=== PATIENT | female | born 2000 | race Two or more races ===

== ENCOUNTER 2024-05-06 10:17 | Outpatient (CLI) | payer OTHER | END 2024-05-06 10:23 | disposition home or self-care (01) | LOC: PRENATAL 10:17 | PROVIDERS: ATTEND Obstetrics & Gynecology Maternal & Fetal Medicine | DX: O36.80X0 Pregnancy with inconclusive fetal viability, not applicable or unspecified (principal); Z36.82 Encounter for antenatal screening for nuchal translucency; Z14.8 Genetic carrier of other disease; O14.90 Unspecified pre-eclampsia, unspecified trimester; Z3A.14 14 weeks gestation of pregnancy ==

== ENCOUNTER 2024-07-19 12:15 | Outpatient (CLI) | payer OTHER | END 2024-07-19 12:16 | disposition home or self-care (01) | LOC: PRENATAL 12:15 | PROVIDERS: ATTEND Obstetrics & Gynecology Maternal & Fetal Medicine | DX: O35.9XX0 Maternal care for (suspected) fetal abnormality and damage, unspecified, not applicable or unspecified (principal); O35.3XX0 Maternal care for (suspected) damage to fetus from viral disease in mother, not applicable or unspecified; O44.02 Complete placenta previa NOS or without hemorrhage, second trimester; O14.92 Unspecified pre-eclampsia, second trimester; Z3A.25 25 weeks gestation of pregnancy ==

== ENCOUNTER → 2024-09-13 10:31 | Outpatient (CLI) | payer OTHER | END | disposition home or self-care (01) | LOC: PRENATAL 10:31 | PROVIDERS: ATTEND Obstetrics & Gynecology Maternal & Fetal Medicine | DX: O26.849 Uterine size-date discrepancy, unspecified trimester (principal); O36.8199 Decreased fetal movements, unspecified trimester, other fetus; O14.90 Unspecified pre-eclampsia, unspecified trimester; Z3A.32 32 weeks gestation of pregnancy ==